=== PATIENT | female | born 1995 | race Two or more races ===

== ENCOUNTER 2023-06-30 13:34 | Outpatient (CLI) | payer OTHER | END 2023-06-30 13:35 | disposition home or self-care (01) | LOC: PRENATAL 13:34 | PROVIDERS: ATTEND Obstetrics & Gynecology Maternal & Fetal Medicine | DX: O36.80X0 Pregnancy with inconclusive fetal viability, not applicable or unspecified (principal); Z36.82 Encounter for antenatal screening for nuchal translucency; O34.219 Maternal care for unspecified type scar from previous cesarean delivery; Z3A.14 14 weeks gestation of pregnancy ==

== ENCOUNTER → 2023-08-11 12:51 | Outpatient (CLI) | payer OTHER | END | disposition home or self-care (01) | LOC: PRENATAL 12:51 | PROVIDERS: ATTEND Obstetrics & Gynecology Maternal & Fetal Medicine | DX: O35.3XX0 Maternal care for (suspected) damage to fetus from viral disease in mother, not applicable or unspecified (principal); O44.00 Complete placenta previa NOS or without hemorrhage, unspecified trimester; O34.219 Maternal care for unspecified type scar from previous cesarean delivery; Z3A.20 20 weeks gestation of pregnancy ==

== ENCOUNTER 2023-11-04 08:20 | Outpatient (CLI) | payer OTHER | END 2023-11-04 08:22 | disposition home or self-care (01) | LOC: PRENATAL 08:20 | PROVIDERS: ATTEND Obstetrics & Gynecology Maternal & Fetal Medicine | DX: O36.8199 Decreased fetal movements, unspecified trimester, other fetus (principal); O26.849 Uterine size-date discrepancy, unspecified trimester; Z3A.33 33 weeks gestation of pregnancy ==

== ENCOUNTER 2023-12-15 09:09 | Inpatient (IN) | payer OTHER ==
[~2023-12-15] VITALS: Ht 162.6 cm; Wt 2.7 kg
[2023-12-15 10:08] LABS: INR < 0.93; PARTIAL THROMBOPLASTIN TIME 26.6 SECONDS (22.0-34.0)
[2023-12-15 10:13] LABS: PROTHROMBIN TIME 9.7 SECONDS (9.0-11.5)
[2023-12-15 10:14] LABS: PH,URINE 6.5 (5.0-8.0); URINE APPEARANCE Clear; URINE BILIRRUBIN Negative (NEGATIVE); URINE BLOOD Negative; URINE COLOR Yellow; URINE GLUCOSE Negative (NEGATIVE); URINE LEUKOCYTE Small; URINE NITRATE Negative; URINE PROTEIN Negative (NEGATIVE)
[2023-12-15 10:15] LABS: HEMATOCRIT 30.7 % (36.0-45.00); MEAN CORPUSCULAR HGB CONC 31.7 g/dl (32.0-36.0); PLATELET COUNT 289 K/uL (150-450); RED BLOOD COUNT 4.92 M/uL (4.00-6.00); RED CELL DISTRIBUTION WIDTH 20.3 % (11.5-14.5)
[2023-12-15] MEDS ORDERED: HIERRO (10:15)
[2023-12-15 10:16] LABS: HEMOGLOBIN 9.7 g/dL (12.0-15.00); MEAN CELL VOLUME 62.4 fL (80.00-100.00); MEAN CORPUSCULAR HEMOGLOBIN 19.7 pg (27.00-32.0)
[2023-12-15] MEDS ORDERED: PRENATALES (10:16)
[2023-12-15 10:18] LABS: URINE BACTERIA 697.9 uL (0.0-1933); URINE EPITHELIAL CELLS 35.8 uL (0.0-38.8); URINE RBC 4.8 uL (0.0-20.8); URINE WBC 34.1 uL (0.0-23.2)
[2023-12-15 10:27] LABS: BILIRUBIN TOTAL 0.74 mg/dL (0.3-1.2); CREATININE SERUM 0.6 mg/dL (0.55-1.02); GFR 119.92; GLOBULINA 4.1 G/DL (2.4-3.5); POTASSIUM 4.17 mEq/L (3.5-5.1); TOTAL PROTEIN 7.1 gm/dL (6.4-8.2)
[2023-12-15] MEDS ORDERED: CEFOXITIN SODIUM 2,000 MG VIAL IV ONE ×2 (14:53→18:00)
[2023-12-15] MEDS ORDERED: OXYTOCIN 10 UNITS/ML VIAL ONE (17:15)
[2023-12-15] MEDS ORDERED: ERYTHROMYCIN BASE 1 GM TUBE OP ONE ×2 (17:16→19:45)
[2023-12-15] MEDS ORDERED: ONDANSETRON HCL 2 MG/ML VIAL IV PRN (18:45)
[2023-12-15] MEDS ORDERED: MORPHINE SULFATE 4 MG/ML CARTRIDGE IV PRN (18:45)
[2023-12-15] MEDS ORDERED: OXYTOCIN 1,000 ML IV SCH (18:45)
[2023-12-15] MEDS ORDERED: KETOROLAC TROMETHAMINE 30 MG VIAL IV PRN (19:00)
[2023-12-15] MEDS ORDERED: OXYTOCIN 10 UNITS/ML VIAL IV ONE (19:45)
[2023-12-15] MEDS ORDERED: SIMETHICONE 125 MG CAPSULE PO SCH (21:00)
[2023-12-16 02:48] LABS: HEMATOCRIT 30.3 % (36.0-45.00); HEMOGLOBIN 9.5 g/dL (12.0-15.00); MEAN CELL VOLUME 62.9 fL (80.00-100.00); MEAN CORPUSCULAR HEMOGLOBIN 19.7 pg (27.00-32.0); MEAN CORPUSCULAR HGB CONC 31.2 g/dl (32.0-36.0); PLATELET COUNT 232 K/uL (150-450); RED BLOOD COUNT 4.82 M/uL (4.00-6.00); RED CELL DISTRIBUTION WIDTH 20.4 % (11.5-14.5)
[2023-12-16] MEDS ORDERED: OxyCODONE HCL/APAP UD (PERCOCET) PO PRN ×2 (10:45)
[2023-12-16] MEDS ORDERED: IBUprofen 800 MG TABLET PO SCH (13:00)
[2023-12-16] MEDS ORDERED: SOD FERRIC GLUC COMPLX/SUCROSE 62.5 MG in 0.9 % SODIUM CHLORIDE 50 ML IV SCH (14:09)
[2023-12-16] MEDS ORDERED: DOCUSATE SODIUM 100MG CAP PO SCH (17:00)
[2023-12-17] MEDS ORDERED: FERROUS SULFATE 325 MG TABLET.EC PO SCH (21:35)
[2023-12-18] MEDS ORDERED: COLACE100 MG PO (09:08)
[2023-12-18] MEDS ORDERED: FERROUS SULFAT325 M1 PO (09:08)
[2023-12-18] MEDS ORDERED: OXYC1TAB9 PO (09:08)
[2023-12-18] MEDS ORDERED: IBUPROFEN800 MG PO (09:08)
== END 2023-12-18 11:08 | disposition home or self-care (01) | DRG 785 ==
LOC: OB/GYN 09:09 → O/R 11:10 → OB/GYN 19:40
PROVIDERS: Obstetrics & Gynecology; ADMIT Student in an Organized Health Care Education/Training Program; ATTEND Student in an Organized Health Care Education/Training Program
PROC: 0UB70ZZ Excision of Bilateral Fallopian Tubes, Open Approach (ICD-10-PCS; 2023-12-15)
PROC: 4A1HXCZ Monitoring of Products of Conception, Cardiac Rate, External Approach (ICD-10-PCS; 2023-12-15)
PROC: 10D00Z1 Extraction of Products of Conception, Low, Open Approach (ICD-10-PCS; principal; 2023-12-15 15:30)
DX: O34.211 Maternal care for low transverse scar from previous cesarean delivery (principal); Z3A.39 39 weeks gestation of pregnancy; Z30.2 Encounter for sterilization; Z20.822 Contact with and (suspected) exposure to COVID-19; Z37.0 Single live birth